=== PATIENT | male | born 1980 | race Caucasian/White ===

== ENCOUNTER → 2022-07-03 | Outpatient (CLI) | payer OTHER ==
[~2022-07-03] MED LIST: LORA1 PO; VITAMINS
[2022-07-05 05:07] LABS: CHLAMYDIA BY NAA Negative (Negative); GONOCOCCUS BY NAA Negative (Negative); TRICH VAG BY NAA Negative (Negative)
== END ==
LOC: LAB SHORT 17:34 → LAB 17:34
PROVIDERS: Chiropractor
DX: Z20.2 Contact with and (suspected) exposure to infections with a predominantly sexual mode of transmission (principal)
CPT/HCPCS: 87491; 87591; 87661

== ENCOUNTER 2022-08-07 09:33 | Emergency (ER) | payer OTHER ==
[~2022-08-07] VITALS: Ht 177.8 cm; Wt 90.7 kg
[2022-08-07] MEDS ORDERED: CEPH500 PO (12:35)
[2022-08-07] MEDS ORDERED: Bactrim Ds Tab1 EACH PO (12:35)
== END 2022-08-07 12:39 | disposition home or self-care (01) ==
LOC: ER 09:33
DX: L03.116 Cellulitis of left lower limb (principal)
CPT/HCPCS: 99283

== ENCOUNTER 2023-09-13 07:55 | Inpatient (IN) | payer OTHER ==
[~2023-09-13] VITALS: Ht 177.8 cm; Wt 103.7 kg
[~2023-09-13 07:55] MED LIST changes: +Bactrim Ds Tab1 EACH PO; +CEPH500 PO
[2023-09-13 09:36] LABS: Source, Urine Clean Catch
[2023-09-13 09:41] LABS: Appearance, Urine Clear (Clear); Bilirubin, Urine Neg (Neg); Blood, Urine 1+ (Neg); Color, Urine Yellow (P-Yellow); Glucose Qualitative, Urine Neg (Neg); Ketones, Urine Neg (Neg); Leukocyte Esterase, Urine 1+ (Neg); Nitrite, Urine Neg (Neg); Protein, Urine 1+ (Neg); Urobilinogen, Urine NORM (Normal)
[2023-09-13 09:42] LABS: BASOPHILS ABSOLUTE AUTO 0.07 K/mm3 (0.00-0.23); BASOPHILS PERCENT AUTO 0 % (0-2); EOSINOPHILS PERCENT AUTO 0 % (0-6); Hematocrit 49.8 % (37.0-53.0); Hemoglobin 17.1 g/dL (13.5-17.5); IMMATURE GRAN ABSOLUTE AUTO 0.14 K/mm3 (0.00-0.10); IMMATURE GRAN PERCENT AUTO 1 % (0-1); LYMPHOCYTES ABSOLUTE AUTO 4.51 K/mm3 (0.84-5.20); LYMPHOCYTES PERCENT AUTO 18 % (21-46); MONOCYTES ABSOLUTE AUTO 1.42 K/mm3 (0.16-1.47); MONOCYTES PERCENT AUTO 6 % (4-13); Mean Corpuscular HGB 28.9 pg (26.0-34.0); Mean Corpuscular HGB Conc 34.3 g/dL (31.5-36.5); Mean Corpuscular Volume 84 fL (80-100); Mean Platelet Volume 9.7 fL (9.1-12.4); NEUTROPHILS ABSOLUTE AUTO 18.34 K/mm3 (1.96-9.15); NEUTROPHILS PERCENT AUTO 75 % (41-73); Platelet Count 389 K/mm3 (150-400); RDW Coefficient Variation 13.3 % (11.7-14.2); RDW Standard Deviation 41.3 fL (35.1-46.3); Red Blood Cell Count 5.91 M/mm3 (4.30-5.90); White Blood Cell Count 24.58 K/mm3 (4.00-11.30)
[2023-09-13 10:04] LABS: Bacteria Rare /hpf; Red Blood Cells, Urine 0-2 /hpf (0-2); Squamous Epithelial Cells Rare /hpf (Few); White Blood Cells, Urine 0-2 /hpf (0-5)
[2023-09-13 10:05] LABS: Albumin, Blood 3.7 g/dL (3.4-5.0); Albumin/Globulin Ratio 0.8 (0.8-1.8); Bilirubin, Total 0.4 mg/dL (0.1-1.0); Bun/Creatinine Ratio 18.7 (12.0-20.0); Calcium, Blood 9.6 mg/dL (8.5-10.1); Creatinine, Blood 0.7 mg/dL (0.60-1.20); Globulin, Blood 4.7 g/dL (2.2-4.0); Potassium, Blood 4.3 mmol/L (3.5-5.5); Total Protein, Blood 8.4 g/dL (6.4-8.2)
[2023-09-13 15:24] VITALS: BP 146/84
--- NOTE | 2023-09-13 18:23 | NUR ---
SHIFT SUMMARY PT A NEW ED ADMIT THIS SHIFT. AOX4, INDEPENDENT IN THE ROOM. C/O ABD PAIN, MEDICATED PER THE EMAR. PT CALLS AND MAKES HIS NEEDS KNOWN. NO OTHER COMPLAINTS AT THIS TIME. CALL LIGHT WITHIN REACH, BED IN THE LOWEST POSITION. WILL REPORT TO ONCOMING NURSE.
--- NOTE | 2023-09-13 19:49 | NUR ---
RECEIVED REPORT AND ASSUMED CARE OF THE PT. PT LYING IN BED MOANING IN PAIN, STATES IT IS LOCATED IN HIS ABDOMEN. CALLED HOSPITALIST AND RECIEVED ORDERS FOR PAIN MANAGEMENT, PLEASE SEE MAR.
[2023-09-13 20:46] VITALS: BP 134/73
[2023-09-14] VITALS (21 sets, daily range): BP systolic 42–178; BP diastolic 29–117
--- NOTE | 2023-09-14 03:47 | NUR ---
SHIFT SUMMARY: ANDERSON IS A&OX4. VSS, NO ACUTE EVENTS OVERNIGHT. HE REPORTS TOLERABLE PAIN CONTROL WITH MEDICATIONS PER MAR AND IS INDEPENDENT IN THE ROOM. HE REPORTS PASSING GAS, NO BM THIS SHIFT, AND IS TOLERATING CLEAR LIQUIDS WITHOUT DIFFICULTY. IV TO RIGHT FOREARM PATENT, SALINE LOCKED. HE IS LYING IN BED WITH THE CALL LIGHT IN REACH. WILL GIVE REPORT TO DAY SHIFT RN.
[2023-09-14 05:00] LABS: BASOPHILS ABSOLUTE AUTO 0.08 K/mm3 (0.00-0.23); BASOPHILS PERCENT AUTO 0 % (0-2); EOSINOPHILS ABSOLUTE AUTO 0.03 K/mm3 (0.00-0.68); EOSINOPHILS PERCENT AUTO 0 % (0-6); Hemoglobin 14.1 g/dL (13.5-17.5); IMMATURE GRAN ABSOLUTE AUTO 0.16 K/mm3 (0.00-0.10); IMMATURE GRAN PERCENT AUTO 1 % (0-1); LYMPHOCYTES ABSOLUTE AUTO 3.84 K/mm3 (0.84-5.20); LYMPHOCYTES PERCENT AUTO 15 % (21-46); MONOCYTES PERCENT AUTO 6 % (4-13); Mean Corpuscular HGB Conc 34.4 g/dL (31.5-36.5); Mean Corpuscular Volume 84 fL (80-100); Mean Platelet Volume 10.1 fL (9.1-12.4); NEUTROPHILS ABSOLUTE AUTO 20.54 K/mm3 (1.96-9.15); NEUTROPHILS PERCENT AUTO 78 % (41-73); Platelet Count 284 K/mm3 (150-400); RDW Coefficient Variation 13.8 % (11.7-14.2); RDW Standard Deviation 42.2 fL (35.1-46.3); Red Blood Cell Count 4.87 M/mm3 (4.30-5.90); White Blood Cell Count 26.25 K/mm3 (4.00-11.30)
[2023-09-14 05:29] LABS: Albumin, Blood 2.8 g/dL (3.4-5.0); Albumin/Globulin Ratio 0.7 (0.8-1.8); Bilirubin, Total 1.2 mg/dL (0.1-1.0); Calcium, Blood 8.7 mg/dL (8.5-10.1); Creatinine, Blood 0.78 mg/dL (0.60-1.20); Globulin, Blood 4.2 g/dL (2.2-4.0); Potassium, Blood 3.7 mmol/L (3.5-5.5)
--- NOTE | 2023-09-14 13:53 | NUR ---
PT TRANSPORTED DOWN TO SURGERY @1350 VIA [facility].
--- NOTE | 2023-09-14 14:00 | NUR ---
PT WILL BE GOING TO ROOM 227 POST SURGERY
[2023-09-14 19:58] LABS: PCO2 Arterial 39.7 mmHg (35-45); PO2 Arterial 57.6 mmHg (80-100); pH Blood Arterial 7.39 (7.35-7.45)
[2023-09-15] VITALS (7 sets, daily range): BP systolic 129–158; BP diastolic 80–103
[2023-09-15 01:21] LABS: Adenovirus Not Detected (NOT DETECT); Coronavirus 229E Not Detected (NOT DETECT); Coronavirus HKU1 Not Detected (NOT DETECT); Coronavirus NL63 Not Detected (NOT DETECT)
[2023-09-15 01:22] LABS: Bordetella pertussis Not Detected (NOT DETECT); Chlamydophila pneumoniae Not Detected (NOT DETECT); Coronavirus OC43 Not Detected (NOT DETECT); Human Metapneumovirus Not Detected (NOT DETECT); Human Rhinovirus/Enterovirus Not Detected (NOT DETECT); Influenza A/2009-H1 Not Detected (NOT DETECT); Influenza A/H1 Not Detected (NOT DETECT); Influenza A/H3 Not Detected (NOT DETECT); Influenza B Not Detected (NOT DETECT); Mycoplasma pneumoniae Not Detected (NOT DETECT); Parainfluenza Virus 1 Not Detected (NOT DETECT); Parainfluenza Virus 2 Not Detected (NOT DETECT); Parainfluenza Virus 3 Not Detected (NOT DETECT); Parainfluenza Virus 4 Not Detected (NOT DETECT); Respiratory Syncytial Virus Not Detected (NOT DETECT); SARS-Cov-2 (COVID-19), BioFire Not Detected (NOT DETECT)
[2023-09-15 04:02] LABS: BASOPHILS ABSOLUTE AUTO 0.05 K/mm3 (0.00-0.23); BASOPHILS PERCENT AUTO 0 % (0-2); EOSINOPHILS PERCENT AUTO 0 % (0-6); Hematocrit 39.3 % (37.0-53.0); Hemoglobin 13.6 g/dL (13.5-17.5); IMMATURE GRAN PERCENT AUTO 1 % (0-1); LYMPHOCYTES ABSOLUTE AUTO 1.83 K/mm3 (0.84-5.20); LYMPHOCYTES PERCENT AUTO 5 % (21-46); MONOCYTES ABSOLUTE AUTO 1.64 K/mm3 (0.16-1.47); MONOCYTES PERCENT AUTO 5 % (4-13); Mean Corpuscular HGB 29.5 pg (26.0-34.0); Mean Corpuscular HGB Conc 34.6 g/dL (31.5-36.5); Mean Corpuscular Volume 85 fL (80-100); Mean Platelet Volume 9.9 fL (9.1-12.4); NEUTROPHILS ABSOLUTE AUTO 30.75 K/mm3 (1.96-9.15); NEUTROPHILS PERCENT AUTO 89 % (41-73); Platelet Count 304 K/mm3 (150-400); RDW Coefficient Variation 13.6 % (11.7-14.2); RDW Standard Deviation 42.5 fL (35.1-46.3); Red Blood Cell Count 4.61 M/mm3 (4.30-5.90); White Blood Cell Count 34.57 K/mm3 (4.00-11.30)
[2023-09-15 04:30] LABS: Albumin, Blood 2.6 g/dL (3.4-5.0); Albumin/Globulin Ratio 0.6 (0.8-1.8); Bilirubin, Total 0.8 mg/dL (0.1-1.0); Bun/Creatinine Ratio 17.2 (12.0-20.0); Creatinine, Blood 0.82 mg/dL (0.60-1.20); Globulin, Blood 4.7 g/dL (2.2-4.0); Potassium, Blood 4.2 mmol/L (3.5-5.5); Total Protein, Blood 7.3 g/dL (6.4-8.2)
--- NOTE | 2023-09-15 06:21 | NUR ---
SHIFT SUMMARY PATIENT ARRIVED FROM PACU TO PCU 15 AROUND 2029 POST SIGMOID COLECTOMY. PATIENT ARRIVED ON 13 LITERS O2 VIA NONREBREATHER. PATIENT WAS TACHYPNIC AND LUNG SOUNDS WERE COARSE THROUGHOUT WITH CRACKLES IN THE BASES, BREATHING TREATMENT COMPLETED BY RT. PATIENT WAS DIAPHORETIC AND CLAMMY, RATING HIS ABDOMINAL PAIN 8/10. NURSE PRACTITIONER ADULT CALLED [employer] MACHINIST RESIDENT AND OBTAINED ORDERS FOR A RESPIRATORY PANEL AND STAT CHEST X-RAY. OVERNIGHT THE PATIENT'S PAIN WAS NOT WELL CONTROLLED, DR SANDHU INCREASED IV DILAUDED TO 1-2 MG EVERY 2 HOURS NEEDED. PATIENT NOW REPORTS HAVING A TOLERABLE PAIN LEVEL. PATIENT'S LUNG SOUNDS ARE CLEAR IN ALL CHILDERS AND HAS BEEN ABLE TO BE TITRATED DOWN ON OXYGEN TO 4 LITERS, CURRENTLY SATING AT 94%. HEART RATE WAS INITIALLY IN THE 120'S WHEN HE ARRIVED, NOW IS RUNNING 90'S TO LOW 100'S. WILL CONTINUE TO MONITOR. CALL LIGHT WITHIN REACH.
--- NOTE | 2023-09-15 10:13 | NUR ---
AM NOTE - PATIENT LEAVING AMA UPON SHIFT START THIS RN AND NOC RN AT BEDSIDE DOING REPORT AROUND 0710 . PATIENT APEARS TO BE CALM SITTING ON THE EDGE OF BED AND VERY THANKFUL TO NOC RN FOR HELPING MANAGE PAIN THROUGHOUT THE NIGHT. PATIENT EXPRESSES HOW WELL HE IS DOING WITH DRINKING WATER AND TEA AND RATES PAIN 5/10. THIS RN BACK TO BEDSIDE AROUND 0730 TO DO ASSESSMENT AND MORNING VITALS. PATIENT ALERT AND ORIENTED, REMAINS SITTING ON EDGE OF BED. ABLE TO EXPRESS HIS PAIN 5/10 BUT DENIES PAIN MEDICATION AT THIS TIME. TELE SHOWING SR/ST WITH HR 90-110'S. ON 4L NASAL CANNULA SATING ABOVE 95%, LUNGS SOUNDING CLEAR AND DIM IN BASES. DENIES CHEST PAIN/PRESSURE/PALPIATIONS. BP STABLE WITH SBP 150'S. PATIENT ANXIOUS AND ASKING THIS RN IF HE CAN GO OUTSIDE. THIS RN DESCRIBED HOSPITAL POLICIES AND HOW TELE WOULD NOT REACH OUTSIDE. THIS RN ASKED PATIENT IF THERE WAS A SPECIFIC REASON WHY HE WANTED TO GO OUTSIDE, PATIENT EXPRESSES NEED FOR CIGARETTE. THIS RN EDUCATES ON HOSPITAL POLICY, DANGERS OF SMOKING WITH OXYGEN AND OFFERS NICOTINE PATCH OR NICOTINE GUM. PATIENT REFUSES NITCOTINE PATCH/GUM AND STATES IF HE IS UNABLE TO SMOKE HE WILL "CHECK MYSELF OUT". THIS RN EDUCATES ON NEED FOR ANTIBIOTICS, PAIN MANAGEMENT, OXYGEN, AND CLOSE MONITORING POST SURGERY. PATIENT UNRECEPTIVE TO EDUCATION AND REPEATS OVER AND OVER THAT HE NEEDS TO JUST GO OUTSIDE AND SMOKE AND HE WOULD COME BACK. THIS RN NOTIFIED DISTRICT MEDICAL EXAMINER OF PATIENT CONCERNS. THIS RN PLACED CALL TO DR. PHIPPS TO NOTIFY, ORDERS FOR ATIVAN IV 1MG NOW. PATIENT BACK TO ROOM AND DISTRICT MEDICAL EXAMINER IN ROOM EDUCATING PATIENT ON CONCERNS WITH LEAVING AND NEEDING TO STAY. PATIENT RECEPTIVE TO 1MG IV ATIVAN. THIS RN GAVE ATIVAN WITH NO RELIEF. PATIENT NOT RECEPTIVE TO ANY OTHER INTERVENTIONS TO TRY AND HELP EASE ANXIETY AND URGE TO SMOKE. DR. PHIPPS TO BEDSIDE. PATIENT CONTINUES TO WANT TO LEAVE, PACKING STUFF IN ROOM AND REMOVING OXYGEN AND PULSE OX STICKER. DR. PHIPPS REQUESTING PORTABLE PULSE OX, PATIENT WALKING UP AND DOWN ACE SATING 93-94% ON ROOM AIR. PATIENT NOT WILLING TO STAY. DISTRICT MEDICAL EXAMINER PLACED CALL TO DR. BOYER. DR. BOYER AWARE. PATIENT FRIEND TO BEDSIDE, TRYING TO CONVINCE PATIENT TO STAY. PATIENT NOT WILLING TO STAY. THIS RN REVIEWED AMA PAPERWORK AND DISCUSSED RISKS OF WORSENING INFECTION, BOWEL PERFERATION, SEPTIC SHOCK, SUDDEN , AND CARDIAC ARREST AMOUNG OTHER RISK FACTORS TO LEAVING AMA. THIS RN EDUCATED PT ON HOW THERE ARE NO BENEFITS TO LEAVING AMA. PATIENT SIGNED AMA PAPERWORK. IV'S REMOVED BY THIS RN. DISTRICT MEDICAL EXAMINER IN TO GIVE PO ABX SCRIPT FROM DR. BOYER AND DR. BOYER OFFICE PHONE NUMBER TO FOLLOW UP. THIS RN REINFORCED IMPORTANCE OF PICKING UP ABX, MONITORING FOR WORSENING SIGNS AND SYMPTOMS OF INFECTION AND PAIN, FOLLOWING UP WITH DR. BOYER, ADVANCING DIET VERY SLOWLY, POST SURGERY INSTRUCTIONS AND SIGNS AND SYMPTOMS OF WHEN TO RETURN. PATIENT LEFT UNIT WITH EDUCATION, WRITTEN SCRIPT AND ALL PERSONAL BELONGINGS.
[2023-09-17 22:11] LABS: ANCA IFA PATTERN None Detected (None Detected); ANCA IFA TITER <1:20 (<1:20)
== END 2023-09-15 08:35 | disposition left against medical advice (07) | DRG 853 ==
LOC: ER 07:55 → MEDS 07:56 → SURS 09-14 16:09 → PCU 09-14 20:18
PROVIDERS: Anesthesiology; Physician Assistant; Student in an Organized Health Care Education/Training Program; Surgery; ADMIT Hospitalist
PROC: 8E0W4CZ Robotic Assisted Procedure of Trunk Region, Percutaneous Endoscopic Approach (ICD-10-PCS; 2023-09-14)
PROC: 4A033R1 Measurement of Arterial Saturation, Peripheral, Percutaneous Approach (ICD-10-PCS; 2023-09-14)
PROC: 0DBN4ZZ Excision of Sigmoid Colon, Percutaneous Endoscopic Approach (ICD-10-PCS; principal; 2023-09-14 14:00)
DX: A41.9 Sepsis, unspecified organism (principal); K65.0 Generalized (acute) peritonitis; A09 Infectious gastroenteritis and colitis, unspecified; K57.20 Diverticulitis of large intestine with perforation and abscess without bleeding; K40.90 Unilateral inguinal hernia, without obstruction or gangrene, not specified as recurrent; F17.210 Nicotine dependence, cigarettes, uncomplicated; F10.90 Alcohol use, unspecified, uncomplicated; Z53.29 Procedure and treatment not carried out because of patient's decision for other reasons; Z11.52 Encounter for screening for COVID-19
CPT/HCPCS: 0202U; 36415; 36600; 71045; 74176; 74177; 80053; 81001; 82803; 82947; 83605; 83690; 85025; 85651; 86037; 86141; 87040; 87086; 88307; 93005; 93010; 94640; 94664; 94762; 96361; 96365; 96366; 96367; 96375; 96376; 99285-25; A9270; G0378; J0744; J1100; J1170; J1885; J2060; J2270; J2405; J2543; J2704; J3010; J7030; J7120; Q9967

== ENCOUNTER 2024-09-13 17:20 | Emergency (ER) | payer OTHER ==
[~2024-09-13] VITALS: Ht 177.8 cm; Wt 99.8 kg
[2024-09-13 17:58] LABS: Hematocrit 46.1 % (37.0-53.0); Hemoglobin 15.9 g/dL (13.5-17.5); Mean Corpuscular HGB 28.9 pg (26.0-34.0); Mean Corpuscular HGB Conc 34.5 g/dL (31.5-36.5); Mean Corpuscular Volume 84 fL (80-100); Mean Platelet Volume 9.3 fL (9.1-12.4); Platelet Count 397 K/mm3 (150-400); RDW Coefficient Variation 13.5 % (11.7-14.2); RDW Standard Deviation 41.9 fL (35.1-46.3); White Blood Cell Count 13.16 K/mm3 (4.00-11.30)
[2024-09-13 18:22] LABS: BASOPHILS PERCENT MAN 0 % (0-2); EOSINOPHILS ABSOLUTE MAN 0.26 K/mm3 (0.00-0.68); EOSINOPHILS PERCENT MAN 2 % (0-6); LYMPHOCYTES % ATYPICAL MANUAL 4 % (0-0); LYMPHOCYTES ABSOLUTE MAN 6.97 K/mm3 (0.84-5.20); LYMPHOCYTES PERCENT MAN 49 % (21-46); MONOCYTES ABSOLUTE MAN 1.05 K/mm3 (0.16-1.47); MONOCYTES PERCENT MAN 8 % (4-13); NEUTROPHILS ABSOLUTE MAN 4.86 K/mm3 (1.96-9.15); SEG NEUTROPHILS PERCENT MAN 37 % (41-73); TOTAL CELLS COUNTED 100
[2024-09-13 18:23] LABS: Albumin, Blood 3.5 g/dL (3.4-5.0); Albumin/Globulin Ratio 0.8 (0.8-1.8); Bilirubin, Total 0.4 mg/dL (0.1-1.0); Bun/Creatinine Ratio 19.3 (12.0-20.0); Calcium, Blood 9.4 mg/dL (8.5-10.1); Creatinine, Blood 0.94 mg/dL (0.60-1.20); Globulin, Blood 4.6 g/dL (2.2-4.0); Potassium, Blood 4.1 mmol/L (3.5-5.5); Total Protein, Blood 8.1 g/dL (6.4-8.2)
[2024-09-13 22:17] LABS: Source, Urine Clean Catch
[2024-09-13 22:21] LABS: Bilirubin, Urine Neg (Neg); Blood, Urine Neg (Neg); Glucose Qualitative, Urine Neg (Neg); Ketones, Urine Neg (Neg); Leukocyte Esterase, Urine Neg (Neg); Nitrite, Urine Neg (Neg); Protein, Urine Neg (Neg); Specific Gravity, Urine 1.025 (1.003-1.022); Urobilinogen, Urine NORM (Normal)
[2024-09-13 22:29] LABS: Appearance, Urine Clear (Clear); Color, Urine Yellow (P-Yellow)
[2024-09-13] MEDS ORDERED: Ketorolac Tromethamine 30mg Vial IV ONE (22:45)
[2024-09-13] MEDS ORDERED: NS 1,000 ML IV SCH (22:45)
[2024-09-14 01:30] VITALS: BP 108/69
== END 2024-09-14 01:35 | disposition home or self-care (01) ==
LOC: ER 17:20
PROVIDERS: Physician Assistant
DX: K63.89 Other specified diseases of intestine (principal); E86.0 Dehydration; F17.210 Nicotine dependence, cigarettes, uncomplicated; Z90.49 Acquired absence of other specified parts of digestive tract; Z59.89 Other problems related to housing and economic circumstances
CPT/HCPCS: 74177; 80053; 81003; 83605; 85025; 96361; 96374-59; 99284-25; J1885; J7030; Q9967

== ENCOUNTER → 2025-06-04 | Outpatient (CLI) | payer OTHER ==
[2025-06-06 16:57] LABS: HEPATITIS B SURFACE ANTIBODY <3.10 IU/L
== END ==
LOC: LAB SHORT 17:26 → LAB 17:26
PROVIDERS: Physician Assistant
DX: L03.113 Cellulitis of right upper limb (principal); Z20.9 Contact with and (suspected) exposure to unspecified communicable disease
CPT/HCPCS: 84460

== ENCOUNTER 2025-07-12 13:37 | Emergency (ER) | payer OTHER ==
[~2025-07-12] VITALS: Ht 177.8 cm; Wt 113.4 kg
[2025-07-12 18:20] VITALS: BP 158/110
== END 2025-07-12 18:25 | disposition home or self-care (01) ==
LOC: ER 13:37
DX: S80.11XA Contusion of right lower leg, initial encounter (principal); L03.115 Cellulitis of right lower limb; F17.210 Nicotine dependence, cigarettes, uncomplicated; W52.XXXA Crushed, pushed or stepped on by crowd or human stampede, initial encounter
CPT/HCPCS: 93971; 99283-25